=== PATIENT | male | born 1990 | race Caucasian/White ===

== ENCOUNTER 2016-07-04 16:09 | Emergency (ER) | payer BC ==
[2016-07-04 16:18] VITALS: RESP 16; O2SAT 98
[2016-07-04] MEDS ORDERED: TDAP ADULT 0.5 ML INJ (BOOSTRIX) IM ONE (16:36)
--- NOTE | 2016-07-04 19:24 | EDPHY ---
H & P Stated Complaint: fell on skateboard chin lac/denies other inj HPI/ROS: Chief complaint: Chin injury from skateboarding fall History of present illness: This is a 26-year-old male who presents to the emergency department for evaluation of a chin injury after being involved in a skateboarding fall. Just prior to arrival patient was skating when he fell, landing directly onto the chin. He sustained a laceration to the chin. He further reports pain to the left side of the jaw. He is having difficulty opening and closing his jaw. He states his teeth do not feel like they are lining up normal. He further reports some right wrist discomfort and abrasions to the body. Patient denies other associated signs or symptoms including no loss of consciousness, no headache, no pain in the neck, back, chest, abdomen, pelvis or extremities other than described above. No neurologic symptoms such as paresthesias, weakness or paralysis or bowel or bladder dysfunction. His tetanus is up-to-date. Review of systems: A 10 point review of systems was obtained and other than described above was negative - Personal History Current Tetanus/Diphtheria Vaccine: Unsure - Medical/Surgical History Hx Asthma: No Hx Chronic Respiratory Disease: No Hx Diabetes: No Hx Cardiac Disease: No Hx Renal Disease: No Hx Cirrhosis: No Hx Alcoholism: No Hx HIV/AIDS: No Hx Splenectomy or Spleen Trauma: No Other PMH: denies - Social History Smoking Status: Current every day smoker - Physical Exam Exam: General Appearance: Alert, nontoxic Eyes: PERRLA. EOM intact. ENT: No hemotympanum, no quiñonez sign, no raccoon eyes. No bleeding along the gum lines. Teeth do appear to be lining up. There is some minor chips to the teeth. Respiratory: Lungs clear to auscultation bilaterally Cardiac: Regular rate and rhythm. Gastrointestinal: Bowel sounds normal. Abdomen is soft, nondistended, nontender. Neurological: Alert and oriented x4. Cranial nerves 2-12 grossly intact. Strength and sensation intact and symmetrical. Skin: 3 cm laceration to the chin. Abrasions to body diffusely without other repairable lesions noted. Musculoskeletal: There is tenderness over the left side of the mandible. He is having difficulty opening closing his mouth. The head is nontender. The spine is nontender without crepitus, bony deformity or step-off. Chest wall intact palpation. Pelvis stable to rocking motion. Patient moving all extremities without difficulty. Mild tenderness over the dorsum of the right wrist, no snuffbox tenderness. He is ambulating without difficulty. Constitutional: Initial Vital Signs Temperature (C) 36.7 C 07/04/16 16:15 Heart Rate 75 07/04/16 16:15 Respiratory Rate 16 07/04/16 16:15 Blood Pressure 112/84 H 07/04/16 16:15 O2 Sat (%) 98 07/04/16 16:15 O2 Delivery Mode Room Air Allergies/Adverse Reactions: No Known Allergies Allergy (Unverified 07/04/16 16:15) Home Medications: Medication Instructions Recorded Amoxicillin 500 mg PO TID 7 Days 07/04/16 Hydrocodone/APAP 5/325 [Quincy 1 tab PO Q4 #12 tab 07/04/16 5/325 (*)] Medical Decision Making - Diagnostics Imaging Results: Imaging Impressions Face CT 07/04/16 16:36 Impression: Minimally displaced slightly comminuted left mandibular condyle head/neck fracture. Findings and recommendations discussed with Emergency Department physician, Ga Patel PA-C, on July 04, 2016 at 1732 hours. Final report concurs with initial preliminary interpretation. Hand X-Ray 07/04/16 19:04 Impression: Negative for fracture. Procedures: Procedure: Laceration repair. Verbal consent was obtained from the patient. The 3 cm laceration on the chin was anesthetized in the usual fashion. The wound was irrigated, draped and explored to its base with a gloved finger. There were no deep structures involved. No tendon injury was identified. The wound was repaired with 5 0 Vicryl, 5 deep sutures, 5 0 Prolene, 7 simple interrupted sutures. The wound repair was complex multilayer closure. The procedure was performed by myself. ED Course/Re-evaluation: Patient is seen under the supervision of my secondary supervising physician Dr. Ahsan Siegel. Patient presents to the emergency department after falling off a skateboard and striking his chin. He has sustained a laceration to his chin. Pain along the left side of the mandible, CT confirms a mandibular fracture. I have consulted with on-call oral surgery, Dr. Villa. She is comfortable with patient being discharged home and following up in clinic. She does recommend patient be started on amoxicillin. Patient's laceration is repaired. Patient did complain of some right wrist pain but x-rays negative. I do not appreciate evidence of significant head trauma, no loss of consciousness, no headache, nonfocal neurologic exam, no report of pain in the neck, I do not believe further imaging studies are warranted. Patient is discharged home. Home care is discussed. Return precautions are given. Patient voiced understanding and agreement with plan. Differential Diagnosis: Included but not limited to soft tissue injury, bony injury, intracranial injury , spinal cord injury, dental trauma - Data Points Medications Given: Discontinued Medications Amoxicillin (Amoxicillin) 500 mg PO EDNOW ONE PRN Reason: Protocol Stop: 07/04/16 19:12 Last Admin: 07/04/16 19:39 Dose: 500 mg Diphtheria/Tetanus/Acell Pertussis (Boostrix) 0.5 ml IM .ONCE ONE Stop: 07/04/16 16:37 Last Admin: 07/04/16 17:52 Dose: 0.5 ml Departure - Departure Disposition: Home, Routine, Self-Care Clinical Impression: Jaw fracture Qualifiers: Encounter type: initial encounter Fracture type: closed Qualified Code(s): S02.609A - Fracture of mandible, unspecified, initial encounter for closed fracture Facial laceration Qualifiers: Encounter type: initial encounter Qualified Code(s): S01.81XA - Laceration without foreign body of other part of head, initial encounter Condition: Good Instructions: Laceration (ED), Jaw Fracture in Adults (ED), Acute Wounds (ED) Additional Instructions: Follow-up with Oral surgery for continued evaluation and care You can follow up with plastic surgeon for the laceration to her chin In regards to pain control see the following: Use ibuprofen [600] mg [3] times a day for the next 2-3 days for pain In addition You have been prescribed [Quincy] for pain. [Quincy] contains Tylenol, do not take extra Tylenol/acetaminophen/Apap with it. It is sedating. If symptoms worsen or new symptoms develop return to the emergency room for recheck Referrals: NONE *PRIMARY CARE P,. [Primary Care Provider] - As per Instructions Jac Villa MD [Medical Doctor] - As per Instructions Marizol Garza JR, MD [Medical Doctor] - As per Instructions [facility],. [Clinic] - As per Instructions Prescriptions: Amoxicillin 500 mg PO TID 7 Days Hydrocodone/APAP 5/325 [Qu[place] (*)] 1 tab PO Q4 #12 tab
[2016-07-04 19:40] VITALS: BP 128/61; PULSE 71; TEMP 98.2
== END 2016-07-25 13:23 | disposition home or self-care (01) ==
DX: S02.612A Fracture of condylar process of left mandible, initial encounter for closed fracture (principal); S01.81XA Laceration without foreign body of other part of head, initial encounter; F17.200 Nicotine dependence, unspecified, uncomplicated; Z23 Encounter for immunization; V00.131A Fall from skateboard, initial encounter; Y99.8 Other external cause status; Y93.51 Activity, roller skating (inline) and skateboarding